=== PATIENT | male | born 1995 | race Caucasian/White ===

== ENCOUNTER 2019-06-28 09:57 | Emergency (ER) | payer BC ==
[~2019-06-28] VITALS: Ht 185.4 cm; Wt 81.6 kg
[2019-06-28 10:04] VITALS: Ht 185.4 cm; Wt 81.6 kg
[2019-06-28 12:22] VITALS: BP 134/75
== END 2019-06-28 12:22 | disposition home or self-care (01) ==
LOC: ED 09:57
DX: R10.32 Left lower quadrant pain (principal); J45.909 Unspecified asthma, uncomplicated
CPT/HCPCS: J1885